=== PATIENT | female | born 1960 | race African-American/Black ===

== ENCOUNTER 2021-12-22 11:06 | Inpatient (IN) ==
[2021-12-22] MEDS ORDERED: NITROGLYCERIN SL 0.4 MG TABLET SL PRN (11:34)
[2021-12-22] MEDS ORDERED: ASPIRIN 325 MG TABLET PO STA (11:34)
[2021-12-22 12:47] LABS: Basophils % 0.1 % (0.0-0.8); Eosinophils % 0.1 % (0.00-10.9); Hematocrit 21.8 VOL% (35.7-47.0); Hemoglobin 6.9 GM/DL (12.0-16.0); Immature Granulocytes Absolute 0.08 #; Lymphocytes # 1.9 10*3/uL (1.4-4.0); Lymphocytes % 24.1 % (21.3-54.2); Mean Corpuscular HGB Conc 31.7 GM/DL (32-36); Mean Corpuscular Volume 90.8 FL (87-102); Mean Platelet Volume 9.2 FL (9.6-12.0); Monocytes # 0.5 10*3/uL (0.11-0.8); Monocytes % 6.2 % (1.7-12.7); NRBC # 0.04 10*3/uL; Neutrophils % 68.5 % (38.7-73.9); Platelet Count 191 T/CUMM (130-400); Red Cell Distribution Width 23.9 % (9.3-17.3)
[2021-12-22 13:04] LABS: Calcium 7.4 MG/DL (8.5-10.1); Osmolality,Calculated 283.3 MOS/KG (273-304); Potassium 3.7 MMOL/L (3.5-5.1)
[2021-12-22 14:07] LABS: INR 1.2; PT Patient Result 13.3 SECS (10.1-12.1); Partial Thromboplastin Time 25.9 SECS (23.7-32.9)
[2021-12-22 14:47] LABS: Platelet Estimate Adequate
[2021-12-22] MEDS ORDERED: GLUCAGON 1 MG VIAL IM PRN (15:45)
[2021-12-22] MEDS ORDERED: ACETAMINOPHEN 325 MG TABLET PO PRN (15:45)
[2021-12-22] MEDS ORDERED: hydrALAZINE 20 MG/1 ML VIAL IV PRN (15:45)
[2021-12-22] MEDS ORDERED: DOCUSATE SODIUM 100 MG CAPSULE PO PRN (15:45)
[2021-12-22] MEDS ORDERED: SODIUM CHLORIDE 0.9% 1,000 ML IV PRN (15:50)
[2021-12-22] MEDS ORDERED: METOPROLOL TARTRATE 50 MG TABLET PO PRN (15:52)
[2021-12-22] MEDS ORDERED: DEXTROSE 10% 250 ML BAG IV PRN (15:53)
[2021-12-22 16:10] LABS: % Iron Saturation 91.1 % (18-50); Ferritin 1715.2 ng/mL (8-252)
[2021-12-22] MEDS: INSULIN REGULAR 100 UNIT/ML SUBCUT SCH ×2 (17:16→20:47)
[2021-12-22] MEDS: METOCLOPRAMIDE 10 MG/2 ML VIAL IV SCH (18:37)
[2021-12-22] MEDS: ONDANSETRON 4 MG/2 ML VIAL IV PRN (18:38)
[2021-12-22 18:56] LABS: Basophils % 0.1 % (0.0-0.8); Hematocrit 21.9 VOL% (35.7-47.0); Immature Granulocytes % 0.7 %; Immature Granulocytes Absolute 0.06 #; Lymphocytes # 1.9 10*3/uL (1.4-4.0); Mean Platelet Volume 8.4 FL (9.6-12.0); Monocytes # 0.7 10*3/uL (0.11-0.8); Monocytes % 8.3 % (1.7-12.7); NRBC # 0.03 10*3/uL; Neutrophils % 68.9 % (38.7-73.9); Platelet Count 173 T/CUMM (130-400); Red Blood Count 2.46 MC/CUMM (3.8-5.5); Red Cell Distribution Width 23.6 % (9.3-17.3); White Blood Count 8.5 T/CUMM (4-12)
[2021-12-22 19:22] LABS: Platelet Estimate Adequate
[2021-12-22 19:57] LABS: Sedimentation Rate-Westergren 65 MM/HR (0-30)
[2021-12-22] MEDS: ROSUVASTATIN 10 MG TABLET PO SCH (20:45)
[2021-12-22] MEDS: LATANOPROST 0.005% OPH SOLN 2.5 ML BOTTLE BOTH EYES SCH (20:46)
[2021-12-22] MEDS: PANTOPRAZOLE 40 MG VIAL IV SCH (20:46)
[2021-12-23] MEDS: METOCLOPRAMIDE 10 MG/2 ML VIAL IV SCH ×4 (01:41→18:07)
[2021-12-23 07:15] LABS: Basophils % 0.3 % (0.0-0.8); Eosinophils # 0.1 10*3/uL (0.0-0.87); Eosinophils % 0.9 % (0.00-10.9); Hematocrit 24.1 VOL% (35.7-47.0); Hemoglobin 7.6 GM/DL (12.0-16.0); Immature Granulocytes % 0.6 %; Immature Granulocytes Absolute 0.05 #; Lymphocytes # 2.5 10*3/uL (1.4-4.0); Lymphocytes % 31.7 % (21.3-54.2); Mean Corpuscular HGB Conc 31.5 GM/DL (32-36); Mean Corpuscular Volume 89.9 FL (87-102); Mean Platelet Volume 8.7 FL (9.6-12.0); Monocytes # 0.7 10*3/uL (0.11-0.8); Monocytes % 8.9 % (1.7-12.7); NRBC # 0.02 10*3/uL; Neutrophils % 57.6 % (38.7-73.9); Platelet Count 160 T/CUMM (130-400); Red Blood Count 2.68 MC/CUMM (3.8-5.5); Red Cell Distribution Width 21.7 % (9.3-17.3)
[2021-12-23 07:19] LABS: Hematocrit 23.9 VOL% (35.7-47.0); Hemoglobin 7.6 GM/DL (12.0-16.0)
[2021-12-23 07:51] LABS: Calcium 7.2 MG/DL (8.5-10.1); Potassium 3.3 MMOL/L (3.5-5.1); Risk Ratio 2.3; Thyroid Stimulating Hormone 0.847 uIU/ml (0.358-3.74); VLDL Cholesterol 13.4 MG/DL
[2021-12-23] MEDS: INSULIN REGULAR 100 UNIT/ML SUBCUT SCH ×4 (08:05→21:10)
[2021-12-23] MEDS ORDERED: POTASSIUM CHLORIDE 20 MEQ TABLET PO ONE (09:41)
[2021-12-23] MEDS ORDERED: SODIUM CHLORIDE 0.9% 1,000 ML IV PRN ×2 (09:44→11:10)
[2021-12-23] MEDS: PANTOPRAZOLE 40 MG VIAL IV SCH ×2 (10:02→21:37)
[2021-12-23] MEDS: ONDANSETRON 4 MG/2 ML VIAL IV PRN (10:03)
[2021-12-23] MEDS ORDERED: PROMETHAZINE INJ 25 MG in SODIUM CHLORIDE 0.9% 50 ML IV PRN (11:45)
[2021-12-23] MEDS: ROSUVASTATIN 10 MG TABLET PO SCH (21:36)
[2021-12-23] MEDS: LATANOPROST 0.005% OPH SOLN 2.5 ML BOTTLE BOTH EYES SCH (21:40)
[2021-12-24] MEDS: METOCLOPRAMIDE 10 MG/2 ML VIAL IV SCH ×5 (01:26→23:37)
[2021-12-24 05:45] LABS: Basophils % 0.2 % (0.0-0.8); Eosinophils # 0.1 10*3/uL (0.0-0.87); Eosinophils % 1.2 % (0.00-10.9); Hematocrit 34.7 VOL% (35.7-47.0); Immature Granulocytes Absolute 0.09 #; Lymphocytes # 2.5 10*3/uL (1.4-4.0); Lymphocytes % 27.4 % (21.3-54.2); Mean Corpuscular HGB Conc 32.3 GM/DL (32-36); Mean Corpuscular Volume 90.1 FL (87-102); Mean Platelet Volume 8.7 FL (9.6-12.0); Monocytes # 0.8 10*3/uL (0.11-0.8); Monocytes % 8.2 % (1.7-12.7); NRBC # 0.03 10*3/uL; Platelet Count 133 T/CUMM (130-400); Red Cell Distribution Width 19.6 % (9.3-17.3); White Blood Count 9.1 T/CUMM (4-12)
[2021-12-24 05:59] LABS: Calcium 7.3 MG/DL (8.5-10.1); Osmolality,Calculated 281.1 MOS/KG (273-304); Potassium 3.1 MMOL/L (3.5-5.1)
[2021-12-24 06:04] LABS: Hemoglobin 11.2 GM/DL (12.0-16.0); Red Blood Count 3.85 MC/CUMM (3.8-5.5)
[2021-12-24] MEDS: INSULIN REGULAR 100 UNIT/ML SUBCUT SCH ×4 (08:36→20:28)
[2021-12-24 09:14] LABS: Hemoglobin A1 (Alkaline) 97.5 % (96.5-98.5); Hemoglobin A2 (Alkaline) 2.5 % (1.5-3.5)
[2021-12-24] MEDS: PANTOPRAZOLE 40 MG VIAL IV SCH ×2 (09:35→21:23)
[2021-12-24] MEDS: ONDANSETRON 4 MG/2 ML VIAL IV PRN ×2 (12:42→17:09)
[2021-12-24] MEDS ORDERED: POTASSIUM CHLORIDE 20 MEQ TABLET PO ONE (13:43)
[2021-12-24] MEDS ORDERED: MAGNESIUM SULF RIDER 2 GM/50 ML PREMIX IV ONE (14:34)
[2021-12-24 19:42] LABS: Folate 1.57 NG/ML (5.38-24.0); Vitamin B12 307 PG/ML (211-911)
[2021-12-24] MEDS: ROSUVASTATIN 10 MG TABLET PO SCH (21:22)
[2021-12-24] MEDS: COLESTIPOL 1 GM TABLET PO SCH (21:22)
[2021-12-24] MEDS: LATANOPROST 0.005% OPH SOLN 2.5 ML BOTTLE BOTH EYES SCH (21:23)
[2021-12-25 04:00] LABS: Basophils % 0.3 % (0.0-0.8); Eosinophils # 0.2 10*3/uL (0.0-0.87); Eosinophils % 1.8 % (0.00-10.9); Hematocrit 34.6 VOL% (35.7-47.0); Hemoglobin 11.1 GM/DL (12.0-16.0); Immature Granulocytes % 0.6 %; Immature Granulocytes Absolute 0.06 #; Lymphocytes # 2.5 10*3/uL (1.4-4.0); Lymphocytes % 25.9 % (21.3-54.2); Mean Corpuscular HGB Conc 32.1 GM/DL (32-36); Mean Corpuscular Volume 89.6 FL (87-102); Mean Platelet Volume 8.8 FL (9.6-12.0); Monocytes # 0.8 10*3/uL (0.11-0.8); Monocytes % 8.7 % (1.7-12.7); NRBC # 0.02 10*3/uL; Neutrophils % 62.7 % (38.7-73.9); Platelet Count 111 T/CUMM (130-400); Red Blood Count 3.86 MC/CUMM (3.8-5.5); Red Cell Distribution Width 19.5 % (9.3-17.3); White Blood Count 9.5 T/CUMM (4-12)
[2021-12-25 04:15] LABS: Calcium 7.3 MG/DL (8.5-10.1); Osmolality,Calculated 279.3 MOS/KG (273-304); Potassium 3.1 MMOL/L (3.5-5.1)
[2021-12-25] MEDS: METOCLOPRAMIDE 10 MG/2 ML VIAL IV SCH ×3 (06:14→18:19)
[2021-12-25] MEDS ORDERED: POTASSIUM CHLORIDE 20 MEQ TABLET PO ONE (07:20)
[2021-12-25] MEDS: INSULIN REGULAR 100 UNIT/ML SUBCUT SCH ×4 (07:32→20:12)
[2021-12-25] MEDS: ONDANSETRON 4 MG/2 ML VIAL IV PRN ×4 (08:37→22:40)
[2021-12-25] MEDS: PANTOPRAZOLE 40 MG VIAL IV SCH ×2 (08:38→20:56)
[2021-12-25] MEDS: amLODIPine 5 MG TABLET PO SCH (08:41)
[2021-12-25] MEDS: FOLIC ACID 1 MG TABLET PO SCH (08:41)
[2021-12-25] MEDS: COLESTIPOL 1 GM TABLET PO SCH ×2 (08:42→20:55)
[2021-12-25] MEDS: POTASSIUM BICARB EFFERVESCENT 20 MEQ TAB.EFF PO SCH ×2 (12:12→20:55)
[2021-12-25] MEDS: ROSUVASTATIN 10 MG TABLET PO SCH (20:55)
[2021-12-25] MEDS: PROMETHAZINE 25 MG/1 ML VIAL IM PRN (21:16)
[2021-12-25] MEDS: LATANOPROST 0.005% OPH SOLN 2.5 ML BOTTLE BOTH EYES SCH (22:40)
[2021-12-26] MEDS: METOCLOPRAMIDE 10 MG/2 ML VIAL IV SCH ×2 (00:21→05:54)
[2021-12-26 05:35] LABS: Basophils % 0.2 % (0.0-0.8); Eosinophils # 0.1 10*3/uL (0.0-0.87); Hemoglobin 11.7 GM/DL (12.0-16.0); Immature Granulocytes % 0.7 %; Immature Granulocytes Absolute 0.07 #; Lymphocytes # 1.5 10*3/uL (1.4-4.0); Lymphocytes % 16.1 % (21.3-54.2); Mean Corpuscular HGB Conc 32.5 GM/DL (32-36); Mean Corpuscular Volume 89.1 FL (87-102); Mean Platelet Volume 8.9 FL (9.6-12.0); Monocytes # 0.9 10*3/uL (0.11-0.8); Monocytes % 9.6 % (1.7-12.7); NRBC # 0.02 10*3/uL; Neutrophils % 72.4 % (38.7-73.9); Platelet Count 108 T/CUMM (130-400); Red Blood Count 4.04 MC/CUMM (3.8-5.5); White Blood Count 9.6 T/CUMM (4-12)
[2021-12-26 06:02] LABS: Calcium 8.1 MG/DL (8.5-10.1); Osmolality,Calculated 277.5 MOS/KG (273-304); Potassium 3.4 MMOL/L (3.5-5.1)
[2021-12-26] MEDS ORDERED: LACTATED RINGERS 1,000 ML IV SCH (07:30)
[2021-12-26] MEDS: SODIUM CHLORIDE 0.9% 1,000 ML IV SCH (07:30)
[2021-12-26] MEDS ORDERED: MAGNESIUM SULF RIDER 2 GM/50 ML PREMIX IV ONE (07:42)
[2021-12-26] MEDS: INSULIN REGULAR 100 UNIT/ML SUBCUT SCH ×4 (07:46→21:32)
[2021-12-26] MEDS ORDERED: LIDOCAINE 2% 5 ML VIAL ONE (08:52)
[2021-12-26] MEDS ORDERED: propofoL 200 MG/20 ML VIAL IV ONE ×2 (08:52→09:17)
[2021-12-26] MEDS ORDERED: ONDANSETRON 4 MG/2 ML VIAL ONE (08:54)
[2021-12-26] MEDS ORDERED: KETAMINE 500 MG/10 ML VIAL ONE (09:01)
[2021-12-26] MEDS ORDERED: AZITHROMYCIN INJ 250 MG in SODIUM CHLORIDE 0.9% 250 ML IV SCH (10:00)
[2021-12-26] MEDS: PANTOPRAZOLE 40 MG VIAL IV SCH ×2 (10:36→21:33)
[2021-12-26] MEDS: amLODIPine 5 MG TABLET PO SCH (10:37)
[2021-12-26] MEDS: busPIRone 5 MG TABLET PO SCH ×2 (10:37→21:27)
[2021-12-26] MEDS: COLESTIPOL 1 GM TABLET PO SCH ×2 (10:37→21:28)
[2021-12-26] MEDS: FOLIC ACID 1 MG TABLET PO SCH (10:37)
[2021-12-26] MEDS: POTASSIUM BICARB EFFERVESCENT 20 MEQ TAB.EFF PO SCH ×2 (10:37→21:27)
[2021-12-26] MEDS ORDERED: AZITHROMYCIN 250 MG TABLET PO SCH (11:19)
[2021-12-26] MEDS: PROMETHAZINE 25 MG/1 ML VIAL IM PRN (12:56)
[2021-12-26] MEDS: ZINC OXIDE 16% PASTE 57 GM TUBE TOP SCH ×2 (12:57→21:36)
[2021-12-26] MEDS: MAGNESIUM OXIDE 400 MG TABLET PO SCH ×2 (15:01→21:28)
[2021-12-26] MEDS: MIRTAZAPINE 15 MG TABLET PO SCH (21:28)
[2021-12-26] MEDS: ROSUVASTATIN 10 MG TABLET PO SCH (21:28)
[2021-12-26] MEDS: LATANOPROST 0.005% OPH SOLN 2.5 ML BOTTLE BOTH EYES SCH (21:36)
[2021-12-26] MEDS: ONDANSETRON 4 MG/2 ML VIAL IV PRN (21:42)
[2021-12-27] MEDS: SODIUM CHLORIDE 0.9% 1,000 ML IV SCH (07:38)
[2021-12-27] MEDS: INSULIN REGULAR 100 UNIT/ML SUBCUT SCH ×4 (08:03→21:35)
[2021-12-27] MEDS ORDERED: AZITHROMYCIN 250 MG TABLET PO SCH (09:00)
[2021-12-27 09:06] LABS: Calcium 7.4 MG/DL (8.5-10.1); Osmolality,Calculated 275.5 MOS/KG (273-304); Potassium 3.4 MMOL/L (3.5-5.1)
[2021-12-27] MEDS: PANTOPRAZOLE 40 MG VIAL IV SCH ×2 (09:09→22:43)
[2021-12-27] MEDS: POTASSIUM BICARB EFFERVESCENT 20 MEQ TAB.EFF PO SCH ×2 (09:10→22:43)
[2021-12-27] MEDS: MAGNESIUM OXIDE 400 MG TABLET PO SCH ×3 (09:10→22:44)
[2021-12-27] MEDS: amLODIPine 5 MG TABLET PO SCH (09:10)
[2021-12-27] MEDS: AZITHROMYCIN INJ 250 MG in SODIUM CHLORIDE 0.9% 250 ML IV SCH (09:10)
[2021-12-27] MEDS: FOLIC ACID 1 MG TABLET PO SCH (09:11)
[2021-12-27] MEDS: busPIRone 5 MG TABLET PO SCH ×2 (09:11→22:44)
[2021-12-27] MEDS: COLESTIPOL 1 GM TABLET PO SCH ×2 (09:11→22:43)
[2021-12-27] MEDS: ZINC OXIDE 16% PASTE 57 GM TUBE TOP SCH ×2 (09:11→22:47)
[2021-12-27] MEDS: SCOPOLAMINE 1.5 MG PATCH TRANSDERM SCH (09:12)
[2021-12-27] MEDS: ONDANSETRON 4 MG/2 ML VIAL IV PRN ×2 (09:22→16:57)
[2021-12-27] MEDS: ROSUVASTATIN 10 MG TABLET PO SCH (22:43)
[2021-12-27] MEDS: HEPARIN 5,000 UNIT/1 ML VIAL SUBCUT SCH (22:43)
[2021-12-27] MEDS: MIRTAZAPINE 15 MG TABLET PO SCH (22:44)
[2021-12-27] MEDS: LATANOPROST 0.005% OPH SOLN 2.5 ML BOTTLE BOTH EYES SCH (22:50)
[2021-12-28 06:22] LABS: Calcium 7.5 MG/DL (8.5-10.1); Osmolality,Calculated 272.8 MOS/KG (273-304); Potassium 3.6 MMOL/L (3.5-5.1)
[2021-12-28] MEDS: ONDANSETRON 4 MG/2 ML VIAL IV PRN ×3 (06:43→22:00)
[2021-12-28 07:39] LABS: Basophils % 0.3 % (0.0-0.8); Eosinophils # 0.1 10*3/uL (0.0-0.87); Eosinophils % 1.5 % (0.00-10.9); Hematocrit 38.4 VOL% (35.7-47.0); Hemoglobin 12.4 GM/DL (12.0-16.0); Immature Granulocytes % 0.8 %; Immature Granulocytes Absolute 0.07 #; Lymphocytes # 1.7 10*3/uL (1.4-4.0); Lymphocytes % 18.5 % (21.3-54.2); Mean Corpuscular HGB Conc 32.3 GM/DL (32-36); Mean Corpuscular Volume 89.9 FL (87-102); Mean Platelet Volume 8.5 FL (9.6-12.0); Monocytes # 0.9 10*3/uL (0.11-0.8); Monocytes % 9.4 % (1.7-12.7); Neutrophils % 69.5 % (38.7-73.9); Red Blood Count 4.27 MC/CUMM (3.8-5.5); Red Cell Distribution Width 18.9 % (9.3-17.3); White Blood Count 9.2 T/CUMM (4-12)
[2021-12-28 07:45] LABS: Platelet Count 93 T/CUMM (130-400)
[2021-12-28 08:00] LABS: Platelet Estimate Decreased
[2021-12-28] MEDS: INSULIN REGULAR 100 UNIT/ML SUBCUT SCH ×4 (08:29→21:57)
[2021-12-28] MEDS: PANTOPRAZOLE 40 MG VIAL IV SCH ×2 (11:30→22:09)
[2021-12-28] MEDS: HEPARIN 5,000 UNIT/1 ML VIAL SUBCUT SCH ×2 (11:30→21:58)
[2021-12-28] MEDS: ZINC OXIDE 16% PASTE 57 GM TUBE TOP SCH ×2 (12:41→22:10)
[2021-12-28] MEDS: MAGNESIUM OXIDE 400 MG TABLET PO SCH ×3 (14:08→21:58)
[2021-12-28] MEDS: POTASSIUM BICARB EFFERVESCENT 20 MEQ TAB.EFF PO SCH ×2 (14:08→21:57)
[2021-12-28] MEDS: COLESTIPOL 1 GM TABLET PO SCH ×2 (14:09→21:57)
[2021-12-28] MEDS: amLODIPine 5 MG TABLET PO SCH (14:09)
[2021-12-28] MEDS: busPIRone 5 MG TABLET PO SCH ×2 (14:09→21:58)
[2021-12-28] MEDS: FOLIC ACID 1 MG TABLET PO SCH (14:09)
[2021-12-28] MEDS: AZITHROMYCIN INJ 250 MG in SODIUM CHLORIDE 0.9% 250 ML IV SCH (15:55)
[2021-12-28] MEDS: MIRTAZAPINE 15 MG TABLET PO SCH (21:57)
[2021-12-28] MEDS: LATANOPROST 0.005% OPH SOLN 2.5 ML BOTTLE BOTH EYES SCH (21:57)
[2021-12-28] MEDS: ROSUVASTATIN 10 MG TABLET PO SCH (21:57)
[2021-12-29] MEDS: INSULIN REGULAR 100 UNIT/ML SUBCUT SCH ×4 (08:37→20:33)
[2021-12-29] MEDS: PANTOPRAZOLE 40 MG VIAL IV SCH ×2 (08:52→20:00)
[2021-12-29] MEDS: ONDANSETRON 4 MG/2 ML VIAL IV PRN ×3 (08:52→20:08)
[2021-12-29] MEDS: ZINC OXIDE 16% PASTE 57 GM TUBE TOP SCH ×2 (09:26→20:00)
[2021-12-29] MEDS: HEPARIN 5,000 UNIT/1 ML VIAL SUBCUT SCH ×2 (09:27→20:00)
[2021-12-29] MEDS: COLESTIPOL 1 GM TABLET PO SCH ×2 (09:28→20:00)
[2021-12-29] MEDS: MAGNESIUM OXIDE 400 MG TABLET PO SCH ×2 (09:28→14:41)
[2021-12-29] MEDS: FOLIC ACID 1 MG TABLET PO SCH (09:28)
[2021-12-29] MEDS: POTASSIUM BICARB EFFERVESCENT 20 MEQ TAB.EFF PO SCH ×2 (09:29→20:00)
[2021-12-29] MEDS: amLODIPine 5 MG TABLET PO SCH (09:29)
[2021-12-29] MEDS: busPIRone 5 MG TABLET PO SCH ×2 (09:29→20:00)
[2021-12-29] MEDS: AZITHROMYCIN INJ 250 MG in SODIUM CHLORIDE 0.9% 250 ML IV SCH ×2 (09:35→17:07)
[2021-12-29] MEDS: LOPERAMIDE 2 MG CAPSULE PO PRN ×2 (12:56→20:07)
[2021-12-29] MEDS: PROMETHAZINE 25 MG/1 ML VIAL IM PRN (14:48)
[2021-12-29] MEDS: MIRTAZAPINE 15 MG TABLET PO SCH (20:00)
[2021-12-29] MEDS: LATANOPROST 0.005% OPH SOLN 2.5 ML BOTTLE BOTH EYES SCH (20:00)
[2021-12-29] MEDS: ROSUVASTATIN 10 MG TABLET PO SCH (20:00)
[2021-12-30 05:42] LABS: Basophils % 0.4 % (0.0-0.8); Eosinophils # 0.2 10*3/uL (0.0-0.87); Eosinophils % 1.8 % (0.00-10.9); Hematocrit 35.5 VOL% (35.7-47.0); Hemoglobin 11.4 GM/DL (12.0-16.0); Immature Granulocytes % 1.8 %; Immature Granulocytes Absolute 0.17 #; Lymphocytes # 2.2 10*3/uL (1.4-4.0); Mean Corpuscular HGB Conc 32.1 GM/DL (32-36); Mean Corpuscular Volume 90.1 FL (87-102); Monocytes # 1.1 10*3/uL (0.11-0.8); Monocytes % 11.7 % (1.7-12.7); Neutrophils % 60.3 % (38.7-73.9); Platelet Count 81 T/CUMM (130-400); Red Blood Count 3.94 MC/CUMM (3.8-5.5); Red Cell Distribution Width 18.9 % (9.3-17.3); White Blood Count 9.2 T/CUMM (4-12)
[2021-12-30 06:42] LABS: Anisocytosis 1+; Platelet Estimate Decreased
[2021-12-30 06:43] LABS: Burr Cells Few; Macrocytosis Slight; Tear Drop Cells Few
[2021-12-30] MEDS: INSULIN REGULAR 100 UNIT/ML SUBCUT SCH ×4 (08:40→21:00)
[2021-12-30] MEDS ORDERED: AZITHROMYCIN INJ 500 MG in SODIUM CHLORIDE 0.9% 250 ML IV SCH ×2 (09:00→15:08)
[2021-12-30] MEDS: HEPARIN 5,000 UNIT/1 ML VIAL SUBCUT SCH ×2 (09:11→21:19)
[2021-12-30] MEDS: amLODIPine 5 MG TABLET PO SCH (09:11)
[2021-12-30] MEDS: POTASSIUM BICARB EFFERVESCENT 20 MEQ TAB.EFF PO SCH ×2 (09:12)
[2021-12-30] MEDS: FOLIC ACID 1 MG TABLET PO SCH (09:12)
[2021-12-30] MEDS: ZINC OXIDE 16% PASTE 57 GM TUBE TOP SCH ×2 (09:13→22:03)
[2021-12-30] MEDS: SCOPOLAMINE 1.5 MG PATCH TRANSDERM SCH (09:17)
[2021-12-30] MEDS: busPIRone 5 MG TABLET PO SCH ×2 (09:18→21:19)
[2021-12-30] MEDS: COLESTIPOL 1 GM TABLET PO SCH ×2 (09:22→21:19)
[2021-12-30] MEDS: PANTOPRAZOLE 40 MG VIAL IV SCH ×2 (09:31→21:19)
[2021-12-30] MEDS: ONDANSETRON 4 MG/2 ML VIAL IV PRN (09:32)
[2021-12-30] MEDS: AZITHROMYCIN INJ 250 MG in SODIUM CHLORIDE 0.9% 250 ML IV SCH (10:23)
[2021-12-30] MEDS ORDERED: LOPERAMIDE 1 MG/7.5 ML 30 ML BOTTLE PO PRN (11:55)
[2021-12-30] MEDS ORDERED: LOPERAMIDE 2 MG CAPSULE PO PRN (12:19)
[2021-12-30] MEDS: ROSUVASTATIN 10 MG TABLET PO SCH (21:19)
[2021-12-30] MEDS: MIRTAZAPINE 15 MG TABLET PO SCH (21:19)
[2021-12-30] MEDS: LATANOPROST 0.005% OPH SOLN 2.5 ML BOTTLE BOTH EYES SCH (21:29)
[2021-12-31 04:52] LABS: Basophils % 0.3 % (0.0-0.8); Eosinophils # 0.1 10*3/uL (0.0-0.87); Eosinophils % 0.8 % (0.00-10.9); Hematocrit 35.4 VOL% (35.7-47.0); Hemoglobin 11.4 GM/DL (12.0-16.0); Immature Granulocytes % 0.9 %; Lymphocytes # 1.9 10*3/uL (1.4-4.0); Lymphocytes % 17.8 % (21.3-54.2); Mean Corpuscular HGB Conc 32.2 GM/DL (32-36); Mean Corpuscular Volume 89.8 FL (87-102); Monocytes # 1.1 10*3/uL (0.11-0.8); Monocytes % 10.8 % (1.7-12.7); Neutrophils % 69.4 % (38.7-73.9); Platelet Count 82 T/CUMM (130-400); Red Blood Count 3.94 MC/CUMM (3.8-5.5); Red Cell Distribution Width 18.9 % (9.3-17.3); White Blood Count 10.6 T/CUMM (4-12)
[2021-12-31 05:06] LABS: Calcium 7.5 MG/DL (8.5-10.1); Osmolality,Calculated 278.5 MOS/KG (273-304); Potassium 2.8 MMOL/L (3.5-5.1)
[2021-12-31 05:13] LABS: Platelet Estimate Decreased
[2021-12-31] MEDS: INSULIN REGULAR 100 UNIT/ML SUBCUT SCH ×4 (07:43→21:19)
[2021-12-31] MEDS ORDERED: MAGNESIUM SULF RIDER 2 GM/50 ML PREMIX IV PRN (08:23)
[2021-12-31] MEDS ORDERED: MAGNESIUM SULF RIDER 4 GM/100 ML PREMIX IV PRN (08:23)
[2021-12-31] MEDS ORDERED: POTASSIUM CHLORIDE 20 MEQ TABLET PO ONE (08:30)
[2021-12-31] MEDS ORDERED: AZITHROMYCIN INJ 500 MG in SODIUM CHLORIDE 0.9% 250 ML IV SCH (09:00)
[2021-12-31] MEDS: ZINC OXIDE 16% PASTE 57 GM TUBE TOP SCH ×2 (09:38→21:19)
[2021-12-31] MEDS: COLESTIPOL 1 GM TABLET PO SCH ×2 (09:39→21:18)
[2021-12-31] MEDS: busPIRone 5 MG TABLET PO SCH ×2 (09:39→21:18)
[2021-12-31] MEDS: FOLIC ACID 1 MG TABLET PO SCH (09:39)
[2021-12-31] MEDS: AZITHROMYCIN 40 MG/ML 15 ML/BOTTLE PO SCH (09:39)
[2021-12-31] MEDS: amLODIPine 5 MG TABLET PO SCH (09:39)
[2021-12-31] MEDS: HEPARIN 5,000 UNIT/1 ML VIAL SUBCUT SCH ×2 (09:40→21:19)
[2021-12-31] MEDS: ONDANSETRON 4 MG/2 ML VIAL IV PRN (10:23)
[2021-12-31] MEDS: PANTOPRAZOLE 40 MG TABLET PO SCH (17:29)
[2021-12-31] MEDS: ROSUVASTATIN 10 MG TABLET PO SCH (21:19)
[2021-12-31] MEDS: LATANOPROST 0.005% OPH SOLN 2.5 ML BOTTLE BOTH EYES SCH (21:19)
[2021-12-31] MEDS: MIRTAZAPINE 15 MG TABLET PO SCH (21:19)
[2022-01-01] MEDS: PANTOPRAZOLE 40 MG TABLET PO SCH (05:45)
[2022-01-01 07:26] LABS: Calcium 7.6 MG/DL (8.5-10.1); Osmolality,Calculated 275.8 MOS/KG (273-304); Potassium 2.6 MMOL/L (3.5-5.1)
[2022-01-01] MEDS ORDERED: POTASSIUM CHLORIDE 20 MEQ TABLET PO ONE (08:01)
[2022-01-01] MEDS: INSULIN REGULAR 100 UNIT/ML SUBCUT SCH ×2 (08:02→11:50)
[2022-01-01] MEDS: COLESTIPOL 1 GM TABLET PO SCH (08:43)
[2022-01-01] MEDS: HEPARIN 5,000 UNIT/1 ML VIAL SUBCUT SCH (08:44)
[2022-01-01] MEDS: FOLIC ACID 1 MG TABLET PO SCH (08:44)
[2022-01-01] MEDS: ZINC OXIDE 16% PASTE 57 GM TUBE TOP SCH (08:44)
[2022-01-01] MEDS: busPIRone 5 MG TABLET PO SCH (08:44)
[2022-01-01] MEDS: amLODIPine 5 MG TABLET PO SCH (08:48)
[2022-01-01] MEDS: AZITHROMYCIN 40 MG/ML 15 ML/BOTTLE PO SCH (08:48)
[2022-01-01] MEDS ORDERED: MAGNESIUM CHLORIDE 64 MG TABLET PO SCH (09:00)
[2022-01-01] MEDS: ONDANSETRON 4 MG/2 ML VIAL IV PRN (10:02)
[2022-01-01 13:14] VITALS: BP 128/66
[2022-01-02 13:56] LABS: CDT Result Negative (Negative); CDT Specimen Source STOOL
[2022-01-03 12:56] LABS: H pylori Specimen source STOOL; Helicobacter pylori Result Not Detected
== END 2022-01-01 15:44 | disposition home or self-care (01) | DRG 73 ==
LOC: N.ED 11:06 → SUATTDRO 15:45 → N.EDINP 15:45 → N.TELES 18:04
PROVIDERS: ADMIT Family Medicine; ATTEND Hospitalist